=== PATIENT | male | born 1950 | race Caucasian/White ===

== ENCOUNTER 2020-12-21 11:34 | Inpatient (IN) | payer OTHER ==
[2020-12-21] MEDS ORDERED: PIPERACILLIN/TAZOB 3.375 GM 3.375 GM in DEXTROSE 5%-WATER - 50 ML IVPB ONE ×2 (13:00→21:00)
[2020-12-21] MEDS ORDERED: PIPERACILLIN/TAZOB 3.375 GM 3.375 GM/50 ML BAG IVPB ONE (13:42)
[2020-12-21 13:43] LABS: BASO % 0.5 % (0-2.0); EOS % 0.9 % (0-4.5); HEMATOCRIT 42.9 % (35.4-49); HEMOGLOBIN 14.5 GM/dL (11.7-16.9); LYMPH % 11.4 % (8-40); MCH 30.1 pg (25.7-33.7); MCHC 33.8 g/dl (32.0-35.9); MONO % 9.9 % (3.8-10.2); NEUT % 77.3 % (42.8-82.8); PLATELET COUNT 351 K/MM3 (134-434); RBC 4.82 M/mm3 (4.00-5.60); RDW 13.7 % (11.9-15.9); WHITE BLOOD COUNT 12.2 K/mm3 (4.0-10.0)
[2020-12-21 13:49] LABS: INR 1.18 (0.83-1.09); PROTHROMBIN TIME (PATIENT) 14.5 SEC (9.7-13.0)
[2020-12-21 13:52] LABS: ACTIVATED PTT 34.3 SECONDS (25.2-36.5)
[2020-12-21 14:07] LABS: ALBUMIN 3.6 g/dl (3.4-5.0); CALCIUM 9.8 mg/dL (8.5-10.1)
[2020-12-21 14:10] LABS: CREATININE 1.2 mg/dL (0.55-1.3)
[2020-12-21 14:11] LABS: BILIRUBIN,TOTAL 0.3 mg/dL (0.2-1)
[2020-12-21 14:12] LABS: TOT PROT 7.9 g/dl (6.4-8.2)
[2020-12-21 14:14] LABS: LACTIC ACID 2.9 mmol/L (0.4-2.0)
[2020-12-21] MEDS ORDERED: LACTATED RINGERS SOLUTION 1000 ML INFUS.BAG IV ONE ×2 (14:25→18:01)
[2020-12-21] MEDS ORDERED: ACETAMINOPHEN 325 MG TABLET (FP) PO PRN (16:34)
[2020-12-21] MEDS ORDERED: SODIUM CHLORIDE 1,000 ML IV SCH (16:45)
[2020-12-21 17:07] LABS: URINE APPEARANCE CLEAR; URINE BILIRUBIN NEGATIVE (NEGATIVE); URINE COLOR YELLOW; URINE GLUCOSE (UA) NEGATIVE (NEGATIVE); URINE KETONE NEGATIVE (NEGATIVE); URINE LEUK ESTERASE NEGATIVE (NEGATIVE); URINE NITRITE NEGATIVE (NEGATIVE); URINE PROTEIN NEGATIVE (NEGATIVE); URINE UROBILINOGEN 0.2 mg/dL (0.2-1.0)
[2020-12-21] MEDS ORDERED: ENOXAPARIN NA (PORCINE) 40 MG/0.4 ML DISP.SYRIN SQ ONE (18:22)
[2020-12-21] MEDS: ENOXAPARIN NA (PORCINE) 40 MG/0.4 ML DISP.SYRIN SQ SCH (18:38)
[2020-12-21 22:25] VITALS: BMI 32.7
[2020-12-22] MEDS ORDERED: DEXTROSE 5%-WATER - 50 ML IVPB ONE ×2 (00:17→10:11)
[2020-12-22] MEDS ORDERED: PIPERACILLIN/TAZOBACTAM 3.375 GM VIAL IVPB ONE ×4 (00:17→17:39)
[2020-12-22] MEDS: INSULIN SLIDING SCALE (NOVOLOG) 1 VIAL SQ SCH ×5 (00:22→21:31)
[2020-12-22 07:50] LABS: BASO % 0.4 % (0-2.0); EOS % 0.9 % (0-4.5); HEMATOCRIT 37.7 % (35.4-49); HEMOGLOBIN 12.1 GM/dl (11.7-16.9); LYMPH % 12.4 % (8-40); MCH 29.3 pg (25.7-33.7); MCHC 32.1 g/dl (32.0-35.9); MEAN CELL VOLUME 91.1 fl (80-96); MEAN PLT VOLUME 6.4 fl (7.5-11.1); MONO % 10.7 % (3.8-10.2); NEUT % 75.6 % (42.8-82.8); PLATELET COUNT 299 K/MM3 (134-434); RBC 4.14 M/mm3 (4.00-5.60); RDW 12.8 % (11.9-15.9); WHITE BLOOD COUNT 8.9 K/mm3 (4.0-10.8)
[2020-12-22 08:26] LABS: ALBUMIN 2.9 g/dl (3.4-5.0); BILIRUBIN,TOTAL 0.5 mg/dl (0.2-1); CALCIUM 8.3 mg/dl (8.5-10); CREATININE 1.1 mg/dl (0.55-1.3); MAGNESIUM 1.9 mg/dL (1.8-2.4); PHOSPHOROUS 4.3 mg/dl (2.5-4.9); TOT PROT 5.9 g/dl (6.4-8.2)
[2020-12-22] MEDS ORDERED: PIPERACILLIN/TAZOB 3.375 GM 3.375 GM in DEXTROSE 5%-WATER - 50 ML IVPB SCH (10:00)
[2020-12-22] MEDS: ENOXAPARIN NA (PORCINE) 40 MG/0.4 ML DISP.SYRIN SQ SCH (10:16)
[2020-12-22] MEDS: CLOPIDOGREL BISULFATE 75 MG TABLET (FP) PO SCH (10:16)
[2020-12-22] MEDS ORDERED: SODIUM CHLORIDE 50 ML IVPB ONE ×2 (17:38→17:40)
[2020-12-22] MEDS: PIPERACILLIN/TAZOB 3.375 GM 3.375 GM in SODIUM CHLORIDE 50 ML IVPB SCH (18:12)
[2020-12-23] MEDS ORDERED: PIPERACILLIN/TAZOBACTAM 3.375 GM VIAL IVPB ONE ×3 (00:12→18:11)
[2020-12-23] MEDS ORDERED: SODIUM CHLORIDE 50 ML IVPB ONE ×3 (00:13→18:11)
[2020-12-23] MEDS: PIPERACILLIN/TAZOB 3.375 GM 3.375 GM in SODIUM CHLORIDE 50 ML IVPB SCH ×3 (01:52→18:31)
[2020-12-23] MEDS: INSULIN SLIDING SCALE (NOVOLOG) 1 VIAL SQ SCH ×4 (06:42→21:17)
[2020-12-23] MEDS: ENOXAPARIN NA (PORCINE) 40 MG/0.4 ML DISP.SYRIN SQ SCH (09:43)
[2020-12-23] MEDS: CLOPIDOGREL BISULFATE 75 MG TABLET (FP) PO SCH (09:43)
[2020-12-23] MEDS: ASPIRIN 81 MG CHEWABLE TABLETS PO SCH (21:16)
[2020-12-23] MEDS: ATORVASTATIN CA 40 MG TABLET (FP) PO SCH (21:16)
[2020-12-23] MEDS ORDERED: CILOSTAZOL 50 MG TABLET PO SCH (22:00)
[2020-12-24] MEDS ORDERED: SODIUM CHLORIDE 50 ML IVPB ONE ×3 (01:11→17:24)
[2020-12-24] MEDS ORDERED: PIPERACILLIN/TAZOBACTAM 3.375 GM VIAL IVPB ONE ×3 (01:11→17:24)
[2020-12-24] MEDS: PIPERACILLIN/TAZOB 3.375 GM 3.375 GM in SODIUM CHLORIDE 50 ML IVPB SCH ×3 (01:17→17:23)
[2020-12-24] MEDS: INSULIN SLIDING SCALE (NOVOLOG) 1 VIAL SQ SCH ×4 (06:21→21:22)
[2020-12-24 07:47] LABS: BASO % 0.5 % (0-2.0); EOS % 1.6 % (0-4.5); HEMOGLOBIN 12.6 GM/dl (11.7-16.9); LYMPH % 20.5 % (8-40); MCH 29.7 pg (25.7-33.7); MEAN CELL VOLUME 89.9 fl (80-96); MEAN PLT VOLUME 6.9 fl (7.5-11.1); MONO % 12.4 % (3.8-10.2); PLATELET COUNT 290 K/MM3 (134-434); RBC 4.23 M/mm3 (4.00-5.60); RDW 13.2 % (11.9-15.9); WHITE BLOOD COUNT 7.2 K/mm3 (4.0-10.8)
[2020-12-24 08:05] LABS: BILIRUBIN,TOTAL 0.6 mg/dl (0.2-1); CALCIUM 8.6 mg/dl (8.5-10); MAGNESIUM 1.9 mg/dL (1.8-2.4)
[2020-12-24] MEDS ORDERED: PT OWN MED DRAWER 7, Y5N ONE (09:20)
[2020-12-24] MEDS: CARVEDILOL PHOSPHATE CR 40 MG CAPSULE (FP) PO SCH (09:41)
[2020-12-24] MEDS: ASPIRIN 81 MG CHEWABLE TABLETS PO SCH (09:42)
[2020-12-24] MEDS: CILOSTAZOL 100 MG TABLET PO SCH ×2 (09:42→21:20)
[2020-12-24] MEDS: VALSARTAN 160 MG TABLET PO SCH (09:42)
[2020-12-24] MEDS: FUROSEMIDE 20 MG TABLET (FP) PO SCH (09:42)
[2020-12-24] MEDS: amLODIPine BESYLATE 10 MG TABLET (FP) PO SCH (09:43)
[2020-12-24] MEDS: ENOXAPARIN NA (PORCINE) 40 MG/0.4 ML DISP.SYRIN SQ SCH (09:43)
[2020-12-24] MEDS: CLOPIDOGREL BISULFATE 75 MG TABLET (FP) PO SCH (09:43)
[2020-12-24] MEDS: COLLAGENASE CLOSTRIDIUM HIST. 30 GRAMS TUBE TP SCH (20:31)
[2020-12-24] MEDS: ATORVASTATIN CA 40 MG TABLET (FP) PO SCH (21:19)
[2020-12-25] MEDS ORDERED: PIPERACILLIN/TAZOBACTAM 3.375 GM VIAL IVPB ONE ×3 (01:11→15:49)
[2020-12-25] MEDS ORDERED: SODIUM CHLORIDE 50 ML IVPB ONE ×3 (01:12→15:49)
[2020-12-25] MEDS: PIPERACILLIN/TAZOB 3.375 GM 3.375 GM in SODIUM CHLORIDE 50 ML IVPB SCH ×3 (01:26→17:03)
[2020-12-25] MEDS: INSULIN SLIDING SCALE (NOVOLOG) 1 VIAL SQ SCH ×4 (07:09→21:25)
[2020-12-25] MEDS: amLODIPine BESYLATE 10 MG TABLET (FP) PO SCH (09:15)
[2020-12-25] MEDS: FUROSEMIDE 20 MG TABLET (FP) PO SCH (09:15)
[2020-12-25] MEDS: VALSARTAN 160 MG TABLET PO SCH (09:15)
[2020-12-25] MEDS: ASPIRIN 81 MG CHEWABLE TABLETS PO SCH (09:15)
[2020-12-25] MEDS: CLOPIDOGREL BISULFATE 75 MG TABLET (FP) PO SCH (09:15)
[2020-12-25] MEDS: CILOSTAZOL 100 MG TABLET PO SCH ×2 (09:29→21:18)
[2020-12-25] MEDS: CARVEDILOL PHOSPHATE CR 40 MG CAPSULE (FP) PO SCH (09:30)
[2020-12-25] MEDS: COLLAGENASE CLOSTRIDIUM HIST. 30 GRAMS TUBE TP SCH (09:31)
[2020-12-25] MEDS: ENOXAPARIN NA (PORCINE) 40 MG/0.4 ML DISP.SYRIN SQ SCH (09:31)
[2020-12-25] MEDS: MINERAL OIL/PET HY-PHL TOPICAL OINTMENT 454 GM JAR TP SCH ×2 (14:06→21:25)
[2020-12-25] MEDS ORDERED: PT OWN MED DRAWER 7, Y5N ONE (21:05)
[2020-12-25] MEDS: ATORVASTATIN CA 40 MG TABLET (FP) PO SCH (21:18)
[2020-12-26] MEDS ORDERED: PIPERACILLIN/TAZOBACTAM 3.375 GM VIAL IVPB ONE ×3 (01:03→16:45)
[2020-12-26] MEDS ORDERED: SODIUM CHLORIDE 50 ML IVPB ONE ×3 (01:03→16:46)
[2020-12-26] MEDS: PIPERACILLIN/TAZOB 3.375 GM 3.375 GM in SODIUM CHLORIDE 50 ML IVPB SCH ×3 (01:09→17:43)
[2020-12-26] MEDS: INSULIN SLIDING SCALE (NOVOLOG) 1 VIAL SQ SCH ×4 (06:45→21:15)
[2020-12-26] MEDS: MINERAL OIL/PET HY-PHL TOPICAL OINTMENT 454 GM JAR TP SCH ×2 (09:08→21:16)
[2020-12-26] MEDS: ENOXAPARIN NA (PORCINE) 40 MG/0.4 ML DISP.SYRIN SQ SCH (09:08)
[2020-12-26] MEDS: ASPIRIN 81 MG CHEWABLE TABLETS PO SCH (09:08)
[2020-12-26] MEDS: amLODIPine BESYLATE 10 MG TABLET (FP) PO SCH (09:09)
[2020-12-26] MEDS: CARVEDILOL PHOSPHATE CR 40 MG CAPSULE (FP) PO SCH (09:09)
[2020-12-26] MEDS: CLOPIDOGREL BISULFATE 75 MG TABLET (FP) PO SCH (09:09)
[2020-12-26] MEDS: FUROSEMIDE 20 MG TABLET (FP) PO SCH (09:09)
[2020-12-26] MEDS: VALSARTAN 160 MG TABLET PO SCH (09:09)
[2020-12-26] MEDS: CILOSTAZOL 100 MG TABLET PO SCH ×2 (09:10→21:13)
[2020-12-26] MEDS: COLLAGENASE CLOSTRIDIUM HIST. 30 GRAMS TUBE TP SCH (09:10)
[2020-12-26] MEDS ORDERED: PT OWN MED DRAWER 7, Y5N ONE ×2 (20:38→21:37)
[2020-12-26] MEDS: ATORVASTATIN CA 40 MG TABLET (FP) PO SCH (21:13)
[2020-12-26] MEDS: INSULIN (LEVEMIR) 100 UNITS/ML UNITS SQ SCH (21:15)
[2020-12-27] MEDS ORDERED: SODIUM CHLORIDE 50 ML IVPB ONE ×3 (01:01→18:02)
[2020-12-27] MEDS ORDERED: PIPERACILLIN/TAZOBACTAM 3.375 GM VIAL IVPB ONE ×3 (01:01→18:01)
[2020-12-27] MEDS: PIPERACILLIN/TAZOB 3.375 GM 3.375 GM in SODIUM CHLORIDE 50 ML IVPB SCH ×3 (01:24→18:18)
[2020-12-27] MEDS: INSULIN SLIDING SCALE (NOVOLOG) 1 VIAL SQ SCH ×4 (07:00→21:09)
[2020-12-27] MEDS: ACETAMINOPHEN 325 MG TABLET (FP) PO PRN ×2 (08:10→13:10)
[2020-12-27] MEDS ORDERED: PT OWN MED DRAWER 7, Y5N ONE ×2 (09:54→20:03)
[2020-12-27] MEDS: MINERAL OIL/PET HY-PHL TOPICAL OINTMENT 454 GM JAR TP SCH ×2 (09:56→21:17)
[2020-12-27] MEDS: ASPIRIN 81 MG CHEWABLE TABLETS PO SCH (09:57)
[2020-12-27] MEDS: CARVEDILOL PHOSPHATE CR 40 MG CAPSULE (FP) PO SCH (09:57)
[2020-12-27] MEDS: ENOXAPARIN NA (PORCINE) 40 MG/0.4 ML DISP.SYRIN SQ SCH (09:58)
[2020-12-27] MEDS: VALSARTAN 160 MG TABLET PO SCH (09:58)
[2020-12-27] MEDS: FUROSEMIDE 20 MG TABLET (FP) PO SCH (09:58)
[2020-12-27] MEDS: CILOSTAZOL 100 MG TABLET PO SCH ×2 (09:59→22:22)
[2020-12-27] MEDS: amLODIPine BESYLATE 10 MG TABLET (FP) PO SCH (09:59)
[2020-12-27] MEDS: CLOPIDOGREL BISULFATE 75 MG TABLET (FP) PO SCH (10:05)
[2020-12-27] MEDS: COLLAGENASE CLOSTRIDIUM HIST. 30 GRAMS TUBE TP SCH (11:41)
[2020-12-27] MEDS: INSULIN (NOVOLOG) ASPART 100 UNITS/ML 10ML VIAL SQ SCH ×2 (11:41→18:17)
[2020-12-27] MEDS: oxyCODONE HCL 5 MG TABLET PO PRN (13:10)
[2020-12-27] MEDS: INSULIN (LEVEMIR) 100 UNITS/ML UNITS SQ SCH (21:09)
[2020-12-27] MEDS: ATORVASTATIN CA 40 MG TABLET (FP) PO SCH (21:10)
[2020-12-28] MEDS ORDERED: PIPERACILLIN/TAZOBACTAM 3.375 GM VIAL IVPB ONE ×3 (01:27→16:57)
[2020-12-28] MEDS ORDERED: SODIUM CHLORIDE 50 ML IVPB ONE ×3 (01:28→16:57)
[2020-12-28] MEDS: PIPERACILLIN/TAZOB 3.375 GM 3.375 GM in SODIUM CHLORIDE 50 ML IVPB SCH ×3 (01:35→18:02)
[2020-12-28] MEDS: INSULIN SLIDING SCALE (NOVOLOG) 1 VIAL SQ SCH ×4 (06:59→21:33)
[2020-12-28] MEDS: INSULIN (NOVOLOG) ASPART 100 UNITS/ML 10ML VIAL SQ SCH ×3 (06:59→16:52)
[2020-12-28] MEDS: CLOPIDOGREL BISULFATE 75 MG TABLET (FP) PO SCH (09:10)
[2020-12-28] MEDS: FUROSEMIDE 20 MG TABLET (FP) PO SCH (09:10)
[2020-12-28] MEDS: amLODIPine BESYLATE 10 MG TABLET (FP) PO SCH (09:10)
[2020-12-28] MEDS: ASPIRIN 81 MG CHEWABLE TABLETS PO SCH (09:10)
[2020-12-28] MEDS: VALSARTAN 160 MG TABLET PO SCH (09:10)
[2020-12-28] MEDS: ENOXAPARIN NA (PORCINE) 40 MG/0.4 ML DISP.SYRIN SQ SCH (09:10)
[2020-12-28] MEDS: COLLAGENASE CLOSTRIDIUM HIST. 30 GRAMS TUBE TP SCH (09:11)
[2020-12-28] MEDS: MINERAL OIL/PET HY-PHL TOPICAL OINTMENT 454 GM JAR TP SCH ×2 (09:12→22:04)
[2020-12-28] MEDS ORDERED: PT OWN MED DRAWER 7, Y5N ONE (09:25)
[2020-12-28] MEDS: CILOSTAZOL 100 MG TABLET PO SCH ×2 (09:37→21:32)
[2020-12-28] MEDS: CARVEDILOL PHOSPHATE CR 40 MG CAPSULE (FP) PO SCH (09:37)
[2020-12-28] MEDS: ATORVASTATIN CA 40 MG TABLET (FP) PO SCH (21:32)
[2020-12-28] MEDS: INSULIN (LEVEMIR) 100 UNITS/ML UNITS SQ SCH (21:32)
[2020-12-29] MEDS: PIPERACILLIN/TAZOB 3.375 GM 3.375 GM in SODIUM CHLORIDE 50 ML IVPB SCH ×2 (02:00→09:42)
[2020-12-29] MEDS ORDERED: SODIUM CHLORIDE 50 ML IVPB ONE ×2 (03:07→09:38)
[2020-12-29] MEDS ORDERED: PIPERACILLIN/TAZOBACTAM 3.375 GM VIAL IVPB ONE ×2 (03:07→09:38)
[2020-12-29] MEDS: INSULIN (NOVOLOG) ASPART 100 UNITS/ML 10ML VIAL SQ SCH ×3 (06:03→16:27)
[2020-12-29] MEDS: INSULIN SLIDING SCALE (NOVOLOG) 1 VIAL SQ SCH ×4 (06:03→21:23)
[2020-12-29] MEDS: oxyCODONE HCL 5 MG TABLET PO PRN (08:56)
[2020-12-29] MEDS: ACETAMINOPHEN 325 MG TABLET (FP) PO PRN (08:58)
[2020-12-29] MEDS ORDERED: PT OWN MED DRAWER 7, Y5N ONE ×2 (09:38→21:08)
[2020-12-29] MEDS: CILOSTAZOL 100 MG TABLET PO SCH ×2 (09:43→21:12)
[2020-12-29] MEDS: CARVEDILOL PHOSPHATE CR 40 MG CAPSULE (FP) PO SCH (09:45)
[2020-12-29] MEDS: amLODIPine BESYLATE 10 MG TABLET (FP) PO SCH (09:45)
[2020-12-29] MEDS: ASPIRIN 81 MG CHEWABLE TABLETS PO SCH (09:45)
[2020-12-29] MEDS: VALSARTAN 160 MG TABLET PO SCH (09:45)
[2020-12-29] MEDS: CLOPIDOGREL BISULFATE 75 MG TABLET (FP) PO SCH (09:45)
[2020-12-29] MEDS: FUROSEMIDE 20 MG TABLET (FP) PO SCH (09:45)
[2020-12-29] MEDS: COLLAGENASE CLOSTRIDIUM HIST. 30 GRAMS TUBE TP SCH (09:46)
[2020-12-29] MEDS: MINERAL OIL/PET HY-PHL TOPICAL OINTMENT 454 GM JAR TP SCH ×2 (09:47→21:26)
[2020-12-29] MEDS: ENOXAPARIN NA (PORCINE) 40 MG/0.4 ML DISP.SYRIN SQ SCH (09:48)
[2020-12-29] MEDS ORDERED: AMOX TR/POT CLAV 875MG/125MG TABLETS (FP) PO ONE (18:00)
[2020-12-29 18:53] VITALS: BP 140/53; PULSE 79; TEMP 98.7
[2020-12-29] MEDS: ATORVASTATIN CA 40 MG TABLET (FP) PO SCH (21:12)
[2020-12-29] MEDS: INSULIN (LEVEMIR) 100 UNITS/ML UNITS SQ SCH (21:22)
== END 2020-12-29 21:49 | DRG 300 ==
LOC: JER 11:34 → JERBED 13:42 → FM/S 21:42
PROVIDERS: ATTEND Nurse Practitioner Acute Care
DX: E11.51 Type 2 diabetes mellitus with diabetic peripheral angiopathy without gangrene (principal); L03.115 Cellulitis of right lower limb; L03.116 Cellulitis of left lower limb; I10 Essential (primary) hypertension; E78.5 Hyperlipidemia, unspecified; I25.10 Atherosclerotic heart disease of native coronary artery without angina pectoris; E66.9 Obesity, unspecified; Z68.31 Body mass index [BMI] 31.0-31.9, adult; Z95.5 Presence of coronary angioplasty implant and graft; I73.9 Peripheral vascular disease, unspecified; E11.621 Type 2 diabetes mellitus with foot ulcer; E11.40 Type 2 diabetes mellitus with diabetic neuropathy, unspecified; L97.529 Non-pressure chronic ulcer of other part of left foot with unspecified severity
CPT/HCPCS: 11042; 36415; 71045-TC-FY; 73590-TC-LT-FY; 73590-TC-RT-FY; 73630-TC-LT; 73630-TC-RT-FY; 73718-TC-LT; 73718-TC-RT; 80053; 81003; 82962; 83036; 83605; 83735; 84100; 85025; 85610; 85730; 86850; 86900; 86901; 87040; 87086; 93005; 93010; 93925-TC; 97116-GP; 97162-GP; 99285-25; A6197; C9803; U0003; U0005